=== PATIENT | female | born 1995 | race African-American/Black ===

== ENCOUNTER 2018-07-11 10:27 | Inpatient (IN) ==
[2018-07-11 10:37] VITALS: BMI 23.9
[2018-07-11] MEDS ORDERED: NS 1000 ML 1,000 ML ONE (11:51)
[2018-07-11] MEDS ORDERED: NS 1000 ML 1,000 ML IV SCH (12:00)
[2018-07-11 12:21] LABS: BASOPHILS % (AUTO) 0.5 % (0.2-1.0); EOSINOPHILS # (AUTO) 0.2 x10^3/uL (0.0-0.2); EOSINOPHILS % (AUTO) 2.9 % (0.9-2.9); HEMATOCRIT 30.3 % (36.0-47.0); HEMOGLOBIN 10.7 g/dL (12.0-16.0); LYMPHOCYTES # (AUTO) 0.5 X10^3/uL (1.3-2.9); LYMPHOCYTES % (AUTO) 10.5 % (21.0-51.0); MEAN CORPUSCULAR HEMOGLOBIN 29.7 pg (27.0-34.0); MEAN CORPUSCULAR HGB CONC 35.2 g/dL (33.0-35.0); MEAN CORPUSCULAR VOLUME 84.2 fL (80.0-100.0); MEAN PLATELET VOLUME 12.4 fL (7.4-11.0); MONOCYTES # (AUTO) 0.8 x10^3/uL (0.3-0.8); MONOCYTES % (AUTO) 14.9 % (0.0-13.0); NEUTROPHILS # (AUTO) 3.7 x10^3/uL (2.2-4.8); NEUTROPHILS % (AUTO) 71.2 % (42.0-75.0); PLATELET COUNT 41 X10^3/uL (150.0-450.0); RED CELL DISTRIBUTION WIDTH 17.5 % (11.6-16.5); WHITE BLOOD COUNT 5.2 X10^3/uL (3.6-10.0)
[2018-07-11 12:29] LABS: ALANINE AMINOTRANSFERASE 31 Units/L (12-78); ALBUMIN 2.2 g/dL (3.4-5.0); ALKALINE PHOSPHATASE 253 Units/L (46-116); ASPARTATE AMINO TRANSFERASE 40 Units/L (15-37); BLOOD UREA NITROGEN 3 mg/dL (7-18); CALCIUM 8.1 mg/dL (8.5-10.1); CARBON DIOXIDE 28.7 mmol/L (21-32); CHLORIDE 103 mmol/L (98-107); COR CA(FOR HYPOALB) 9.5 mg/dL (8.5-10.1); CREATININE 0.77 mg/dL (0.55-1.02); SODIUM 139 mmol/L (136-145); TOTAL PROTEIN 5.4 g/dL (6.4-8.2); eGFR NON BLACK RACES > 60 (>60)
[2018-07-11 12:32] LABS: PLATELET MORPHOLOGY COMMENT NORMAL (NORMAL)
[2018-07-11 12:39] LABS: BILIRUBIN,URINE 3+ (NEGATIVE); BLOOD/HEMOGLOBIN,URINE NEGATIVE (NEGATIVE); GLUCOSE, URINE NEGATIVE (NEGATIVE); KETONES,URINE NEGATIVE (NEGATIVE); LEUKOCYTE ESTERASE ,URINE 1+ (NEGATIVE); NITRITES,URINE POSITIVE (NEGATIVE); PROTEIN,URINE 2+ (NEGATIVE); UROBILINOGEN,URINE 4+ (NORMAL)
--- NOTE | 2018-07-11 12:42 | RAD ---
Chest x-ray, two views Clinical indication: Fever, chest pain Findings: The heart size and mediastinal contours are normal. There are no consolidating infiltrates. The pleural spaces are clear. There is radiopaque material outlining paraesophageal and gastric vari destin within the epigastric region near the GE junction, probably due to prior embolization. Tips shunt is identified within the liver. Gallbladder is surgically absent. There is no evidence of free air o r pneumothorax. Impression: No acute pulmonary infiltrates identified. Evidence of prior TIPS procedure and embolization of para esophageal/gastric varices. Reported By:
[2018-07-11 12:47] LABS: AMORPHOUS SEDIMENT,UR 4+ /HPF (NEGATIVE); APPEARANCE,URINE HAZY (CLEAR); BACTERIA,URINE TRACE /HPF (NEGATIVE); CALCIUM OXALATE CRYSTALS,UR RARE /HPF (NEGATIVE); COLOR,URINE AMBER (YELLOW); SQUAMOUS EPITHELIAL CELL,UR FEW /HPF (NEGATIVE)
[2018-07-11] MEDS ORDERED: K-LYTE EFFERVESCENT ONE ×2 (13:45)
[2018-07-11] MEDS ORDERED: CIPRO IV 400 MG PREMIX* 400 MG/200 ML IV.SOLN. IV ONE (14:23)
--- NOTE | 2018-07-11 14:29 | DR.GENAD ---
HPI Time Seen Time Seen by Provider: 07/11/18 11:22 PCP Primary Care Physician: dr licea Complaint/Symptoms Chief Complaint Doctors Comments: I agree with statement as written. Patient lab work revealed bacteremia on 07/07/18 Klebsiella pneumonia sensitive to few oral antibiotics. Patient has liver failure. Chief Complaint:: pt has been running a fever for 2 weeks was seen [facility]18 and was dx with pneumonia. ravin called pt and told her to come to our er to be admitted. Source History Provided: Patient Mode of Arrival Mode of Arrival: Ambulatory Timing Onset of Chief Complaint: 07/03/18 PMH PMH Past Medical History: Yes Past Medical History Comment: liver problems Past Surgical History: Yes Surgical History: Cholecystectomy Past Surgical History Comment: esopghes bands, liver shunt Family History History of Family Medical Conditions: No Social History Does patient currently use any type of tobacco product: No Have you used tobacco products in the last 12 months: No Type of Tobacco Use: None Does any household member use tobacco: No Alcohol Use: None Do you use any recreational Drugs:: No Lives With: Family Lives Where: Home infectious screening In the last 2 months have you had wt loss of >10#?: NO Have you had fever, night sweats or hemotysis?: No Have you traveled outside the country in the last 6 months?: No Isolation: Standard PE Vital Signs Vitals: Temperature 99.6 F Pulse Rate 103 Respiratory Rate 16 Blood Pressure [Left Arm] 108/58 Blood Pressure 104/58 O2 Sat by Pulse Oximetry 99 General Limitations: No Limitations and Language Barrier General Appearance: Alert and In No Apparent Distress Head Head Exam: Normal Inspection and Atraumatic Eyes Eye exam: Normal Appearance, PERRL and EOMI ENT ENT Exam: Normal Exam, Normal Oropharynx and Normal External Ear Exam External Ear Exam: Normal External Inspection and Auricular Hematoma TM/Canal Exam: Bilateral: Normal Nose Exam: Normal Nose Exam Mouth Exam: Normal Inspection Throat Exam: Normal Inspection Neck Neck Exam: Normal Inspection Chest Chest Inspection: Normal Inspection Respiratory Respiratory Exam: Normal Lung Sounds Bilat Respiratory Exam: Bilateral: Clear to Auscultation Cardiovascular Cardiovascular Exam: Regular Rate and Normal Rhythm Abdominal Exam Abdominal Exam: Normal Inspection and Normal Bowel Sounds Abdominal Tenderness: RUQ, RLQ and LUQ Back Back Exam: Normal Inspection and Full ROM Neurologic Neurological Exam: Alert, Oriented X3 and CN II-XII Intact Psychiatric Psychiatric Exam: Normal Affect and Normal Mood Skin Skin Exam: Warm, Dry and Normal Color COURSE Consultation Called: 14:10 Consultation Comments: Patient discussed with Dr. Romero who agreed to admits for further management for bacteremia. ROR Labs Reviewed Laboratory Results Reviewed?: Yes Result Diagrams: 07/11/18 11:08 07/11/18 11:08 Laboratory: WBC 5.2 X10^3/uL (3.6-10.0) 07/11/18 11:08 RBC 3.60 X10^6/uL (3.5-5.4) 07/11/18 11:08 Hgb 10.7 g/dL (12.0-16.0) L 07/11/18 11:08 Hct 30.3 % (36.0-47.0) L 07/11/18 11:08 MCV 84.2 fL (80.0-100.0) 07/11/18 11:08 MCH 29.7 pg (27.0-34.0) 07/11/18 11:08 MCHC 35.2 g/dL (33.0-35.0) H 07/11/18 11:08 RDW 17.5 % (11.6-16.5) H 07/11/18 11:08 Plt Count 41 X10^3/uL (150.0-450.0) L 07/11/18 11:08 Plt Count Comment Decreased (ADEQUATE) A 07/11/18 11:08 MPV 12.4 fL (7.4-11.0) H 07/11/18 11:08 Neut % (Auto) 71.2 % (42.0-75.0) 07/11/18 11:08 Lymph % (Auto) 10.5 % (21.0-51.0) L 07/11/18 11:08 [place] % (Auto) 14.9 % (0.0-13.0) H 07/11/18 11:08 Eos % (Auto) 2.9 % (0.9-2.9) 07/11/18 11:08 Baso % (Auto) 0.5 % (0.2-1.0) 07/11/18 11:08 Neut # (Auto) 3.7 x10^3/uL (2.2-4.8) 07/11/18 11:08 Lymph # (Auto) 0.5 X10^3/uL (1.3-2.9) L 07/11/18 11:08 [place] # (Auto) 0.8 x10^3/uL (0.3-0.8) 07/11/18 11:08 Eos # (Auto) 0.2 x10^3/uL (0.0-0.2) 07/11/18 11:08 Baso # (Auto) 0.0 X10^3/uL (0.0-0.1) 07/11/18 11:08 Absolute Nucleated RBC 0.1 /100WBC 07/11/18 11:08 Plt Morphology Comment Normal (NORMAL) 07/11/18 11:08 RBC Morphology Normal (NORMAL) 07/11/18 11:08 Sodium 139 mmol/L (136-145) 07/11/18 11:08 Corrected Sodium TNP 07/11/18 11:08 Potassium 3.3 mmol/L (3.5-5.1) L 07/11/18 11:08 Chloride 103 mmol/L (98-107) 07/11/18 11:08 Carbon Dioxide 28.7 mmol/L (21-32) 07/11/18 11:08 BUN 3 mg/dL (7-18) L 07/11/18 11:08 Creatinine 0.77 mg/dL (0.55-1.02) 07/11/18 11:08 Est GFR (MDRD) Af Amer > 60 (>60) 07/11/18 11:08 Est GFR (MDRD) Non-Af > 60 (>60) 07/11/18 11:08 Glucose 86 mg/dL (65-99) 07/11/18 11:08 Calcium 8.1 mg/dL (8.5-10.1) L 07/11/18 11:08 Corrected Calcium 9.5 mg/dL (8.5-10.1) 07/11/18 11:08 Total Bilirubin 6.30 mg/dL (0.2-1.0) H 07/11/18 11:08 AST 40 Units/L (15-37) H 07/11/18 11:08 ALT 31 Units/L (12-78) 07/11/18 11:08 Alkaline Phosphatase 253 Units/L (46-116) H 07/11/18 11:08 C-Reactive Protein 27.20 mg/L (0-3.0) H 07/11/18 11:08 Total Protein 5.4 g/dL (6.4-8.2) L 07/11/18 11:08 Albumin 2.2 g/dL (3.4-5.0) L 07/11/18 11:08 Globulin 3.2 g/dL (2.5-4.5) 07/11/18 11:08 Albumin/Globulin Ratio 0.7 Ratio (1.1-2.1) L 07/11/18 11:08 Specimen Type Clean catch urine 07/11/18 12:31 Urine Color [place] (YELLOW) 07/11/18 12: Urine Appearance Hazy (CLEAR) 07/11/18 12:31 Urine pH 6.0 (5.0 - 8.0) 07/11/18 12:31 Ur Specific [place] 1.025 (1.000-1.030) 07/11/18 12:31 Urine Protein 2+ (NEGATIVE) 07/11/18 12:31 Urine Glucose (UA) Negative (NEGATIVE) 07/11/18 12:31 Urine Ketones Negative (NEGATIVE) 07/11/18 12:31 Urine Occult Blood Negative (NEGATIVE) 07/11/18 12:31 Urine Nitrite Positive (NEGATIVE) 07/11/18 12:31 Urine Bilirubin 3+ (NEGATIVE) 07/11/18 12:31 Urine Urobilinogen 4+ (NORMAL) 07/11/18 12:31 Ur Leukocyte Esterase 1+ (NEGATIVE) 07/11/18 12:31 Urine RBC 3-5 /HPF (NONE SEEN) 07/11/18 12:31 Urine WBC 3-5 /HPF (NONE SEEN) 07/11/18 12:31 Ur Squamous Epith Cells Few /HPF (NEGATIVE) 07/11/18 12:31 Calcium Oxalate Crystal Rare /HPF (NEGATIVE) 07/11/18 12:31 Amorphous Sediment 4+ /HPF (NEGATIVE) 07/11/18 12:31 Urine Bacteria Trace /HPF (NEGATIVE) 07/11/18 12:31 Ur Culture Indicated? No/not indicated 07/11/18 12:31 XRAY XRAY Findings: Chest: No acute cardiopulmonary disease. ADDITIONAL NOTES Additional Notes Additional Notes: Patient admitted for parenteral antibiotics
[2018-07-11] MEDS ORDERED: ZOFRAN INJ 4 MG VIAL IVP PRN (14:31)
[2018-07-11] MEDS ORDERED: TYLENOL 325 MG TAB PO PRN ×2 (14:31)
[2018-07-11] MEDS ORDERED: PHENERGAN INJ 25 MG IV PRN (14:31)
[2018-07-11] MEDS ORDERED: MORPHINE SULFATE INJ 4 MG IVP PRN (14:36)
[2018-07-11] MEDS: CIPRO IV 400 MG PREMIX* 400 MG/200 ML IV.SOLN. IV SCH ×2 (15:05→20:21)
[2018-07-11] MEDS: ZOSYN VIAL 3.375 GRAMS 3.375 G in NS 100 ML IV + SPIKE MINIBAG* 100 ML IV SCH (21:41)
[2018-07-12] MEDS: ZOSYN VIAL 3.375 GRAMS 3.375 G in NS 100 ML IV + SPIKE MINIBAG* 100 ML IV SCH (05:01)
[2018-07-12 06:55] LABS: BASOPHILS % (AUTO) 0.3 % (0.2-1.0); EOSINOPHILS # (AUTO) 0.1 x10^3/uL (0.0-0.2); HEMATOCRIT 30.8 % (36.0-47.0); HEMOGLOBIN 10.7 g/dL (12.0-16.0); LYMPHOCYTES # (AUTO) 0.5 X10^3/uL (1.3-2.9); LYMPHOCYTES % (AUTO) 9.1 % (21.0-51.0); MEAN CORPUSCULAR HEMOGLOBIN 29.5 pg (27.0-34.0); MEAN CORPUSCULAR HGB CONC 34.7 g/dL (33.0-35.0); MEAN PLATELET VOLUME 11.7 fL (7.4-11.0); MONOCYTES # (AUTO) 0.6 x10^3/uL (0.3-0.8); MONOCYTES % (AUTO) 11.6 % (0.0-13.0); NEUTROPHILS # (AUTO) 4.1 x10^3/uL (2.2-4.8); PLATELET COUNT 43 X10^3/uL (150.0-450.0); RED BLOOD COUNT 3.62 X10^6/uL (3.5-5.4); RED CELL DISTRIBUTION WIDTH 17.9 % (11.6-16.5); WHITE BLOOD COUNT 5.3 X10^3/uL (3.6-10.0)
[2018-07-12 07:04] LABS: ALANINE AMINOTRANSFERASE 27 Units/L (12-78); ALBUMIN 2.1 g/dL (3.4-5.0); ALKALINE PHOSPHATASE 263 Units/L (46-116); ASPARTATE AMINO TRANSFERASE 36 Units/L (15-37); BLOOD UREA NITROGEN 2 mg/dL (7-18); CALCIUM 7.9 mg/dL (8.5-10.1); CARBON DIOXIDE 30.1 mmol/L (21-32); CHLORIDE 104 mmol/L (98-107); COR CA(FOR HYPOALB) 9.4 mg/dL (8.5-10.1); CREATININE 0.82 mg/dL (0.55-1.02); SODIUM 139 mmol/L (136-145); TOTAL PROTEIN 5.1 g/dL (6.4-8.2); eGFR NON BLACK RACES > 60 (>60)
[2018-07-12 07:27] LABS: PLATELET MORPHOLOGY COMMENT NORMAL (NORMAL)
[2018-07-12] MEDS: CIPRO IV 400 MG PREMIX* 400 MG/200 ML IV.SOLN. IV SCH (08:03)
[2018-07-12] MEDS: LEVAQUIN PREMIX IV 750 MG 750 MG/150 ML BAG IV SCH (09:43)
[2018-07-12] MEDS: FORTAZ or TAZICEF VIAL INJ IVP SCH ×3 (09:43→21:01)
[2018-07-12] MEDS ORDERED: K-LYTE EFFERVESCENT PO ONE (13:16)
[2018-07-13] MEDS: FORTAZ or TAZICEF VIAL INJ IVP SCH ×3 (05:14→20:57)
[2018-07-13 05:45] LABS: BASOPHILS % (AUTO) 0.4 % (0.2-1.0); EOSINOPHILS # (AUTO) 0.1 x10^3/uL (0.0-0.2); EOSINOPHILS % (AUTO) 1.5 % (0.9-2.9); HEMATOCRIT 29.6 % (36.0-47.0); HEMOGLOBIN 10.4 g/dL (12.0-16.0); LYMPHOCYTES # (AUTO) 0.5 X10^3/uL (1.3-2.9); MEAN CORPUSCULAR HEMOGLOBIN 29.4 pg (27.0-34.0); MEAN CORPUSCULAR HGB CONC 35.1 g/dL (33.0-35.0); MEAN CORPUSCULAR VOLUME 83.8 fL (80.0-100.0); MEAN PLATELET VOLUME 12.1 fL (7.4-11.0); MONOCYTES # (AUTO) 0.6 x10^3/uL (0.3-0.8); MONOCYTES % (AUTO) 9.9 % (0.0-13.0); NEUTROPHILS # (AUTO) 4.8 x10^3/uL (2.2-4.8); NEUTROPHILS % (AUTO) 79.2 % (42.0-75.0); PLATELET COUNT 46 X10^3/uL (150.0-450.0); RED BLOOD COUNT 3.53 X10^6/uL (3.5-5.4); RED CELL DISTRIBUTION WIDTH 17.9 % (11.6-16.5); WHITE BLOOD COUNT 6.1 X10^3/uL (3.6-10.0)
[2018-07-13 06:07] LABS: ALANINE AMINOTRANSFERASE 25 Units/L (12-78); ALKALINE PHOSPHATASE 286 Units/L (46-116); ASPARTATE AMINO TRANSFERASE 41 Units/L (15-37); BLOOD UREA NITROGEN 3 mg/dL (7-18); CARBON DIOXIDE 24.6 mmol/L (21-32); CHLORIDE 104 mmol/L (98-107); COR CA(FOR HYPOALB) 9.6 mg/dL (8.5-10.1); CREATININE 0.73 mg/dL (0.55-1.02); SODIUM 137 mmol/L (136-145); TOTAL PROTEIN 5.2 g/dL (6.4-8.2); eGFR NON BLACK RACES > 60 (>60)
[2018-07-13 06:50] LABS: PLATELET MORPHOLOGY COMMENT NORMAL (NORMAL)
--- NOTE | 2018-07-13 08:12 | DR.H&P ---
H&P - History & Physical for Day of: H&P Date: 07/11/18 - Chief Complaint Chief Complaint: FEVER, SOB, COUGH - History of Present Illness History of Present Illness: IS A 23 YEAR OLD PATIENT OF OURS WHO PRESENTED TO THE ER WITH COMPLAINTS OF FEVER X 2 WEEKS. SHE REPORTS THAT SHE WAS SEEN IN THE [place], [place] ER ON 07-07-2018 AND DIAGNOSED WITH PNEUMONIA. SHE WAS DISCHARGED HOME ON ORAL ANTIBIOTICS. PATIENT REPORTED THAT SYMPTOMS HAVE NOT IMPROVED. ASSOCIATED SYMPTOMS INCLUDE SHORTNESS OF BREATH AND A NON-PRODUCTIVE COUGH. UPON OBTAINING RECORDS, BLOOD CULTURES WERE FOUND TO BE POSITIVE FOR KLEBSIELLA PNEUMONIA, WHICH WAS ONLY SENSITIVE TO A FEW ORAL ANTIBIOTICS. PATIENT HAS A MEDICAL HISTORY OF LIVER FAILURE, CHOLECYSTECTOMY, ESOPHAGEAL BANDS, AND A LIVER SHUNT. ON ARRIVAL, VITALS WERE 99.6-103-16-99%-104/58. LABS WERE OBTAINED. ABNORMAL LAB VALUES INCLUDE THE FOLLOWING: HGB 10.7, HCT 30.3, PLT COUNT 41, CRP 27.20, POTASSIUM 3.3, BUN 3, CALCIUM 8.1, TOTAL BILI 6.30, AST 40, ALK PHOS 253, TOTAL PROTEIN 5.4, ALBUMIN 2.2. URINALYSIS REVEALED WBC 3-5, RBC 3-5, LEUKOCYTES 1+, BILIRUBIN 3+, BACTERIA TRACE, NITRATE POSITIVE. BLOOD CULTURES PENDING. CHEST XRAY OBTAINED AND REVEALED: The heart size and mediastinal contours are normal. There are no consolidating infiltrates. The pleural spaces are clear. There is radiopaque material outlining paraesophageal and gastric varices within the epigastric region near the GE junction, probably due to prior embolization. Tips shunt is identified within the liver. Gallbladder is surgically absent. There is no evidence of free air or pneumothorax. SHE WAS ADMITTED TO THE HOSPITAL FOR FURTHER EVALUATION AND TREATMENT OF BACTEREMIA, FAILED OUTPATIENT TREATMENT. SHE WAS STARTED ON CIPRO AND ZOSYN IV. OTHERWISE, WE PLAN TO FOLLOW UP WITH AM LABS AND CONTINUE TO MONITOR PATIENT. - Past Medical History Additional Medical History: LIVER FAILURE - Past Surgical History Surgical History: Cholecystectomy Additional Surgical History: LIVER SHUNT, ESOPHAGEAL BANDS - Family History Family Medical History: Diabetes Mellitus - Social History Does patient currently use any type of tobacco product: No Have you used tobacco products in the last 12 months: No Type of Tobacco Use: None Does any household member use tobacco: No Alcohol Use: None Drug Use: None - Medications Home Medications: iodine Allergy (Verified 07/11/18 10:31) - Review of Systems Constitutional: Fever, Chills Eyes: No Symptoms Reported ENT: No Symptoms Reported Respiratory: Cough, Shortness of Breath Cardiovascular: No Symptoms Reported Gastrointestinal: No Symptoms Reported Genitourinary: No Symptoms Reported Musculoskeletal: No Symptoms Reported Skin: No Symptoms Reported Neurological: No Symptoms Reported - Physical Exam Vital Signs: Temperature 99.0 F Pulse Rate [Right Brachial] 95 Pulse Rate 103 Respiratory Rate 18 Blood Pressure [Left Arm] 98/56 Blood Pressure 104/58 O2 Sat by Pulse Oximetry 98 Oriented: Normal Eyes: Normal Ear: Normal Nose: Normal Throat: Normal Respiratory: Diminished Throughout Cardiovascular: Tachycardia. negative: S3, S4, Murmur : Normal Auscultation: Bowel Sounds: Normal Palpation: Normal Tenderness: Normal Skin: Normal Musculoskeletal: Normal Psychiatric: Normal Mood Description: Calm Affect: Normal Speech Pattern: Clear - Assessment/Plan (1) Bandemia Status: Acute Plan: ADMIT, CIPRO IV, ZOSYN IV, CONTINUE TO MONITOR (2) Fever Qualifiers: Fever type: due to other condition Qualified Code(s): R50.81 - Fever presenting with conditions classified elsewhere Status: Acute Plan: TYLENOL PRN, CONTINUE TO MONITOR - Allergies Allergies/Adverse Reactions: Allergies Allergy/AdvReac Type Severity Reaction Status Date / Time iodine Allergy Verified 07/11/18 10:31
[2018-07-13] MEDS: LEVAQUIN PREMIX IV 750 MG 750 MG/150 ML BAG IV SCH (08:41)
[2018-07-14] MEDS: FORTAZ or TAZICEF VIAL INJ IVP SCH ×4 (01:38→21:49)
[2018-07-14 06:05] LABS: BASOPHILS % (AUTO) 0.5 % (0.2-1.0); EOSINOPHILS # (AUTO) 0.1 x10^3/uL (0.0-0.2); EOSINOPHILS % (AUTO) 1.7 % (0.9-2.9); HEMATOCRIT 29.2 % (36.0-47.0); HEMOGLOBIN 10.4 g/dL (12.0-16.0); LYMPHOCYTES # (AUTO) 0.5 X10^3/uL (1.3-2.9); LYMPHOCYTES % (AUTO) 10.7 % (21.0-51.0); MEAN CORPUSCULAR HGB CONC 35.7 g/dL (33.0-35.0); MEAN PLATELET VOLUME 12.1 fL (7.4-11.0); MONOCYTES # (AUTO) 0.6 x10^3/uL (0.3-0.8); MONOCYTES % (AUTO) 11.2 % (0.0-13.0); NEUTROPHILS # (AUTO) 3.8 x10^3/uL (2.2-4.8); NEUTROPHILS % (AUTO) 75.9 % (42.0-75.0); PLATELET COUNT 51 X10^3/uL (150.0-450.0); RED BLOOD COUNT 3.48 X10^6/uL (3.5-5.4); RED CELL DISTRIBUTION WIDTH 17.4 % (11.6-16.5); WHITE BLOOD COUNT 5.1 X10^3/uL (3.6-10.0)
[2018-07-14 06:14] LABS: ALANINE AMINOTRANSFERASE 26 Units/L (12-78); ALBUMIN 1.9 g/dL (3.4-5.0); ALKALINE PHOSPHATASE 299 Units/L (46-116); ASPARTATE AMINO TRANSFERASE 49 Units/L (15-37); BLOOD UREA NITROGEN 3 mg/dL (7-18); CALCIUM 7.7 mg/dL (8.5-10.1); CARBON DIOXIDE 26.7 mmol/L (21-32); CHLORIDE 105 mmol/L (98-107); COR CA(FOR HYPOALB) 9.4 mg/dL (8.5-10.1); CREATININE 0.75 mg/dL (0.55-1.02); SODIUM 139 mmol/L (136-145); eGFR NON BLACK RACES > 60 (>60)
[2018-07-14 06:26] LABS: ANISOCYTOSIS SLIGHT; PLATELET MORPHOLOGY COMMENT NORMAL (NORMAL)
[2018-07-14] MEDS: LEVAQUIN PREMIX IV 750 MG 750 MG/150 ML BAG IV SCH (08:42)
--- NOTE | 2018-07-14 12:12 | PCM.PROG ---
Progress Note - Progress Note for Day of Date of Exam: 07/14/18 - Subjective Subjective: 23 BF ADMITTED ON 07/11 WITH BACTEREMIA. PT WAS INSTRUCTED BY HER PCP, DR SWEET TO GO TO HOSPITAL FOR TREATMENT OF POSITIVE BLOOD CULTURES, PT STATES COLLECTED IN [place] LAST WEEK. PT HAS PMH OF AUTO IMMUNE LIVER DISEASE, PT CURRENTLY UNDER THE CARE OF DR NEVES IN [place]. PT HAS THROMBOCYTOPENIA AND HX OF ESOPHAGEAL VARICES BANDED LAST IN JUN 2018. PT CO FEVER FOR SEVERAL DAYS PRIOR TO ADMISSION. PT DENIES ANY PAIN OR SOB THIS AM. CURRENTLY ON IV LEVAQUIN, BC COLLECTED ON ADMISSION PENDING. WBC 5.1 PLATELET 51, BILI 5.6 ALK PHOS 299 - Past Medical Family Social History Past Med/Fam/Surg Hx: No changes since H&P Allergies: Allergies iodine Allergy (Verified 07/11/18 10:31) - Review of Systems ROS: No change since H&P - Vital Signs and I&O's Vital Signs: Temperature 98.4 F Pulse Rate [Left Brachial] 89 Pulse Rate [Right Brachial] 97 Pulse Rate 103 Respiratory Rate 18 Blood Pressure [Left Arm] 95/45 Blood Pressure 104/58 O2 Sat by Pulse Oximetry 98 Intake and Output: Intake & Output 07/12/18 07/13/18 07/14/18 07/15/18 11:59 11:59 11:59 11:59 Intake Total 790 / 790 2120 / 2120 1256 / 1256 Balance 790 / 790 0 / 2120 1256 / 1256 - Physical Exam Oriented: Normal Eyes: Normal Ear: Normal Nose: Normal Throat: Normal Respiratory: Diminished (MILD TO BILATERAL LUNG BASES) Cardiovascular: Tachycardia. negative: S3, S4, Murmur : Normal Auscultation: Bowel Sounds: Normal Tenderness: Normal Skin: Normal Musculoskeletal: Normal Psychiatric: Normal Mood Description: Calm Affect: Normal Speech Pattern: Clear, Appropriate - Laboratory and Diagnostics Result Diagrams: 07/14/18 05:15 07/14/18 05:15 Labs: 07/11/18 11:08 Blood Blood Culture - Preliminary 07/11/18 11:13 Blood Blood Culture - Preliminary Laboratory WBC 5.1 X10^3/uL (3.6-10.0) 07/14/18 05:15 RBC 3.48 X10^6/uL (3.5-5.4) L 07/14/18 05:15 Hgb 10.4 g/dL (12.0-16.0) L 07/14/18 05:15 Hct 29.2 % (36.0-47.0) L 07/14/18 05:15 MCV 84.0 fL (80.0-100.0) 07/14/18 05:15 MCH 30.0 pg (27.0-34.0) 07/14/18 05:15 MCHC 35.7 g/dL (33.0-35.0) H 07/14/18 05:15 RDW 17.4 % (11.6-16.5) H 07/14/18 05:15 Plt Count 51 X10^3/uL (150.0-450.0) L 07/14/18 05:15 Plt Count Comment Decreased (ADEQUATE) A 07/14/18 05:15 MPV 12.1 fL (7.4-11.0) H 07/14/18 05:15 Neut % (Auto) 75.9 % (42.0-75.0) H 07/14/18 05:15 Lymph % (Auto) 10.7 % (21.0-51.0) L 07/14/18 05:15 [place] % (Auto) 11.2 % (0.0-13.0) 07/14/18 05:15 Eos % (Auto) 1.7 % (0.9-2.9) 07/14/18 05:15 Baso % (Auto) 0.5 % (0.2-1.0) 07/14/18 05:15 Neut # (Auto) 3.8 x10^3/uL (2.2-4.8) 07/14/18 05:15 Lymph # (Auto) 0.5 X10^3/uL (1.3-2.9) L 07/14/18 05:15 [place] # (Auto) 0.6 x10^3/uL (0.3-0.8) 07/14/18 05:15 Eos # (Auto) 0.1 x10^3/uL (0.0-0.2) 07/14/18 05:15 Baso # (Auto) 0.0 X10^3/uL (0.0-0.1) 07/14/18 05:15 Absolute Nucleated RBC 0.1 /100WBC 07/14/18 05:15 Plt Morphology Comment Normal (NORMAL) 07/14/18 05:15 RBC Morphology Abnormal (NORMAL) A 07/14/18 05:15 Anisocytosis Slight A 07/14/18 05:15 Sodium 139 mmol/L (136-145) 07/14/18 05:15 Corrected Sodium TNP 07/14/18 05:15 Potassium 3.9 mmol/L (3.5-5.1) 07/14/18 05:15 Chloride 105 mmol/L (98-107) 07/14/18 05:15 Carbon Dioxide 26.7 mmol/L (21-32) 07/14/18 05:15 BUN 3 mg/dL (7-18) L 07/14/18 05:15 Creatinine 0.75 mg/dL (0.55-1.02) 07/14/18 05:15 Est GFR (MDRD) Af Amer > 60 (>60) 07/14/18 05:15 Est GFR (MDRD) Non-Af > 60 (>60) 07/14/18 05:15 Glucose 83 mg/dL (65-99) 07/14/18 05:15 Calcium 7.7 mg/dL (8.5-10.1) L 07/14/18 05:15 Corrected Calcium 9.4 mg/dL (8.5-10.1) 07/14/18 05:15 Total Bilirubin 5.60 mg/dL (0.2-1.0) H 07/14/18 05:15 AST 49 Units/L (15-37) H 07/14/18 05:15 ALT 26 Units/L (12-78) 07/14/18 05:15 Alkaline Phosphatase 299 Units/L (46-116) H 07/14/18 05:15 C-Reactive Protein 27.20 mg/L (0-3.0) H 07/11/18 11:08 Total Protein 5.0 g/dL (6.4-8.2) L 07/14/18 05:15 Albumin 1.9 g/dL (3.4-5.0) L 07/14/18 05:15 Globulin 3.1 g/dL (2.5-4.5) 07/14/18 05:15 Albumin/Globulin Ratio 0.6 Ratio (1.1-2.1) L 07/14/18 05:15 Specimen Type Clean catch urine 07/11/18 12:31 Urine Color [place] (YELLOW) 07/11/18 12:31 Urine Appearance Hazy (CLEAR) 07/11/18 12:31 Urine pH 6.0 (5.0 - 8.0) 07/11/18 12:31 Ur Specific [place] 1.025 (1.000-1.030) 07/11/18 12:31 Urine Protein 2+ (NEGATIVE) 07/11/18 12:31 Urine Glucose (UA) Negative (NEGATIVE) 07/11/18 12:31 Urine Ketones Negative (NEGATIVE) 07/11/18 12: Urine Occult Blood Negative (NEGATIVE) 07/11/18 12: Urine Nitrite Positive (NEGATIVE) 07/11/18 12:31 Urine Bilirubin 3+ (NEGATIVE) 07/11/18 12:31 Urine Urobilinogen 4+ (NORMAL) 07/11/18 12:31 Ur Leukocyte Esterase 1+ (NEGATIVE) 07/11/18 12:31 Urine RBC 3-5 /HPF (NONE SEEN) 07/11/18 12:31 Urine WBC 3-5 /HPF (NONE SEEN) 07/11/18 12:31 Ur Squamous Epith Cells Few /HPF (NEGATIVE) 07/11/18 12:31 Calcium Oxalate Crystal Rare /HPF (NEGATIVE) 07/11/18 12:31 Amorphous Sediment 4+ /HPF (NEGATIVE) 07/11/18 12:31 Urine Bacteria Trace /HPF (NEGATIVE) 07/11/18 12:31 Ur Culture Indicated? No/not indicated 07/11/18 12:31 - Plan (1) Bacteremia Status: Acute Plan: DAILY LABS, FEVER CONTROL, MONITORING. GENTLE IV HYDRATION, BP CONTROL. IV ATBX THERAPY, BLOOD CULTURES PENDING. BLEEDING PRECAUTIONS, AM CBC CMP. I & OS (2) Autoimmune liver disease Status: Acute (3) Thrombocythemia Status: Acute (4) Esophageal varices without mention of bleeding Status: Acute
[2018-07-14] MEDS: ALDACTONE TAB 25 MG PO SCH ×2 (13:41→21:48)
[2018-07-14] MEDS ORDERED: ACTIGALL PO SCH (14:00)
[2018-07-14] MEDS: ACTIGALL PO SCH (17:31)
[2018-07-14] MEDS: PROTONIX TAB 40 MG PO SCH (21:48)
[2018-07-15 05:55] LABS: BASOPHILS % (AUTO) 0.4 % (0.2-1.0); EOSINOPHILS # (AUTO) 0.1 x10^3/uL (0.0-0.2); EOSINOPHILS % (AUTO) 1.3 % (0.9-2.9); HEMATOCRIT 30.8 % (36.0-47.0); HEMOGLOBIN 10.7 g/dL (12.0-16.0); LYMPHOCYTES # (AUTO) 0.5 X10^3/uL (1.3-2.9); LYMPHOCYTES % (AUTO) 10.1 % (21.0-51.0); MEAN CORPUSCULAR HEMOGLOBIN 29.3 pg (27.0-34.0); MEAN CORPUSCULAR HGB CONC 34.7 g/dL (33.0-35.0); MEAN CORPUSCULAR VOLUME 84.4 fL (80.0-100.0); MEAN PLATELET VOLUME 12.4 fL (7.4-11.0); MONOCYTES # (AUTO) 0.4 x10^3/uL (0.3-0.8); MONOCYTES % (AUTO) 8.5 % (0.0-13.0); NEUTROPHILS # (AUTO) 3.8 x10^3/uL (2.2-4.8); NEUTROPHILS % (AUTO) 79.7 % (42.0-75.0); PLATELET COUNT 53 X10^3/uL (150.0-450.0); RED BLOOD COUNT 3.65 X10^6/uL (3.5-5.4); RED CELL DISTRIBUTION WIDTH 17.8 % (11.6-16.5); WHITE BLOOD COUNT 4.8 X10^3/uL (3.6-10.0)
[2018-07-15] MEDS: FORTAZ or TAZICEF VIAL INJ IVP SCH ×3 (06:10→21:05)
[2018-07-15] MEDS: ACTIGALL PO SCH (06:11)
[2018-07-15 06:14] LABS: ALANINE AMINOTRANSFERASE 42 Units/L (12-78); ALKALINE PHOSPHATASE 354 Units/L (46-116); ASPARTATE AMINO TRANSFERASE 75 Units/L (15-37); BLOOD UREA NITROGEN 3 mg/dL (7-18); CALCIUM 8.1 mg/dL (8.5-10.1); CARBON DIOXIDE 29.3 mmol/L (21-32); CHLORIDE 105 mmol/L (98-107); COR CA(FOR HYPOALB) 9.7 mg/dL (8.5-10.1); CREATININE 0.79 mg/dL (0.55-1.02); SODIUM 139 mmol/L (136-145); TOTAL PROTEIN 5.3 g/dL (6.4-8.2); eGFR NON BLACK RACES > 60 (>60)
[2018-07-15] MEDS: LEVAQUIN PREMIX IV 750 MG 750 MG/150 ML BAG IV SCH (07:59)
[2018-07-15] MEDS: ALDACTONE TAB 25 MG PO SCH ×2 (07:59→20:51)
[2018-07-15] MEDS: PROTONIX TAB 40 MG PO SCH ×2 (07:59→20:51)
[2018-07-15] MEDS: PATIENT'S HOME MEDICATION PO SCH ×2 (13:52→21:05)
[2018-07-15] MEDS ORDERED: NS 100 ML IV 100 ML IV ONE (20:57)
[2018-07-15] MEDS ORDERED: NS 500 ML IV 500 ML IV ONE ×2 (23:02→23:03)
[2018-07-16] MEDS ORDERED: NS 1000 ML 1,000 ML IV SCH (03:00)
[2018-07-16 05:26] LABS: BASOPHILS % (AUTO) 0.4 % (0.2-1.0); EOSINOPHILS # (AUTO) 0.1 x10^3/uL (0.0-0.2); EOSINOPHILS % (AUTO) 1.5 % (0.9-2.9); HEMATOCRIT 29.8 % (36.0-47.0); HEMOGLOBIN 10.6 g/dL (12.0-16.0); LYMPHOCYTES # (AUTO) 0.5 X10^3/uL (1.3-2.9); LYMPHOCYTES % (AUTO) 11.6 % (21.0-51.0); MEAN CORPUSCULAR HEMOGLOBIN 29.7 pg (27.0-34.0); MEAN CORPUSCULAR HGB CONC 35.5 g/dL (33.0-35.0); MEAN CORPUSCULAR VOLUME 83.9 fL (80.0-100.0); MEAN PLATELET VOLUME 11.2 fL (7.4-11.0); MONOCYTES # (AUTO) 0.3 x10^3/uL (0.3-0.8); MONOCYTES % (AUTO) 7.7 % (0.0-13.0); NEUTROPHILS # (AUTO) 3.5 x10^3/uL (2.2-4.8); NEUTROPHILS % (AUTO) 78.8 % (42.0-75.0); PLATELET COUNT 52 X10^3/uL (150.0-450.0); RED BLOOD COUNT 3.55 X10^6/uL (3.5-5.4); RED CELL DISTRIBUTION WIDTH 17.4 % (11.6-16.5)
[2018-07-16 05:38] LABS: ALANINE AMINOTRANSFERASE 37 Units/L (12-78); ALBUMIN 1.9 g/dL (3.4-5.0); ALKALINE PHOSPHATASE 341 Units/L (46-116); ASPARTATE AMINO TRANSFERASE 61 Units/L (15-37); BLOOD UREA NITROGEN 3 mg/dL (7-18); CALCIUM 7.9 mg/dL (8.5-10.1); CARBON DIOXIDE 27.2 mmol/L (21-32); CHLORIDE 107 mmol/L (98-107); COR CA(FOR HYPOALB) 9.6 mg/dL (8.5-10.1); CREATININE 0.72 mg/dL (0.55-1.02); SODIUM 141 mmol/L (136-145); TOTAL PROTEIN 4.9 g/dL (6.4-8.2); eGFR NON BLACK RACES > 60 (>60)
[2018-07-16] MEDS: FORTAZ or TAZICEF VIAL INJ IVP SCH (05:52)
[2018-07-16] MEDS: PATIENT'S HOME MEDICATION PO SCH (05:52)
[2018-07-16 06:07] LABS: WHITE BLOOD COUNT 4.9 X10^3/uL (3.6-10.0)
[2018-07-16 06:08] LABS: ANISOCYTOSIS SLIGHT; HYPOCHROMASIA SLIGHT; PLATELET MORPHOLOGY COMMENT NORMAL (NORMAL)
[2018-07-16 07:38] VITALS: BP 105/57
[2018-07-16] MEDS: LEVAQUIN PREMIX IV 750 MG 750 MG/150 ML BAG IV SCH (09:36)
[2018-07-16] MEDS: ALDACTONE TAB 25 MG PO SCH (09:36)
[2018-07-16] MEDS: PROTONIX TAB 40 MG PO SCH (09:36)
--- NOTE | 2018-07-16 12:15 | PCM.PROG ---
Progress Note - Progress Note for Day of Date of Exam: 07/15/18 - Subjective Subjective: 23 BF ADMITTED ON 07/11 WITH BACTEREMIA. PT WAS INSTRUCTED BY HER PCP, DR SWEET TO GO TO HOSPITAL FOR TREATMENT OF POSITIVE BLOOD CULTURES, PT STATES COLLECTED IN [place] LAST WEEK. BLOOD CULTURES WERE FOUND TO BE POSITIVE FOR KLEBSIELLA PNEUMONIA. PT HAS PMH OF AUTO IMMUNE LIVER DISEASE, PT CURRENTLY UNDER THE CARE OF DR NEVES IN [place]. PT HAS THROMBOCYTOPENIA AND HX OF ESOPHAGEAL VARICES BANDED LAST IN JUN 2018. PT CO FEVER FOR SEVERAL DAYS PRIOR TO ADMISSION. PT DENIES ANY PAIN OR SOB THIS AM. CURRENTLY ON IV LEVAQUIN AND FORTAZ. BC COLLECTED ON ADMISSION NO GROWTH AT THIS TIME. WBC 4.8 PLATELET 53, BILI 5.7 ALK PHOS 354 - Past Medical Family Social History Past Med/Fam/Surg Hx: No changes since H&P Allergies: Allergies iodine Allergy (Verified 07/11/18 10:31) - Review of Systems ROS: No change since H&P - Vital Signs and I&O's Vital Signs: Temperature 98.6 F Pulse Rate [Left Brachial] 86 Pulse Rate [Right Brachial] 97 Pulse Rate 103 Respiratory Rate 18 Blood Pressure [Left Arm] 105/57 Blood Pressure 104/58 O2 Sat by Pulse Oximetry 98 Intake and Output: Intake & Output 07/14/18 07/15/18 07/16/18 07/17/18 11:59 11:59 11:59 11:59 Intake Total 1256 / 1256 1142 / 1142 1941 Balance 1256 / 1256 1142 / 1142 1941 - Physical Exam Oriented: Normal Eyes: Normal Ear: Normal Nose: Normal Throat: Normal Respiratory: Diminished (MILD TO BILATERAL LUNG BASES) Cardiovascular: Tachycardia. negative: S3, S4, Murmur : Normal Auscultation: Bowel Sounds: Normal Tenderness: Normal Skin: Normal Musculoskeletal: Normal Psychiatric: Normal Mood Description: Calm Affect: Normal Speech Pattern: Clear, Appropriate - Laboratory and Diagnostics Result Diagrams: 07/16/18 04:24 07/16/18 04:24 Labs: 07/11/18 11:08 Blood Blood Culture - Preliminary 07/11/18 11:13 Blood Blood Culture - Preliminary Laboratory WBC 4.9 X10^3/uL (3.6-10.0) 07/16/18 04:24 RBC 3.55 X10^6/uL (3.5-5.4) 07/16/18 04:24 Hgb 10.6 g/dL (12.0-16.0) L 07/16/18 04:24 Hct 29.8 % (36.0-47.0) L 07/16/18 04:24 MCV 83.9 fL (80.0-100.0) 07/16/18 04:24 MCH 29.7 pg (27.0-34.0) 07/16/18 04:24 MCHC 35.5 g/dL (33.0-35.0) H 07/16/18 04:24 RDW 17.4 % (11.6-16.5) H 07/16/18 04:24 Plt Count 52 X10^3/uL (150.0-450.0) L 07/16/18 04:24 Plt Count Comment Decreased (ADEQUATE) A 07/16/18 04:24 MPV 11.2 fL (7.4-11.0) H 07/16/18 04:24 Neut % (Auto) 78.8 % (42.0-75.0) H 07/16/18 04:24 Lymph % (Auto) 11.6 % (21.0-51.0) L 07/16/18 04:24 [place] % (Auto) 7.7 % (0.0-13.0) 07/16/18 04:24 Eos % (Auto) 1.5 % (0.9-2.9) 07/16/18 04:24 Baso % (Auto) 0.4 % (0.2-1.0) 07/16/18 04:24 Neut # (Auto) 3.5 x10^3/uL (2.2-4.8) 07/16/18 04:24 Lymph # (Auto) 0.5 X10^3/uL (1.3-2.9) L 07/16/18 04:24 [place] # (Auto) 0.3 x10^3/uL (0.3-0.8) 07/16/18 04:24 Eos # (Auto) 0.1 x10^3/uL (0.0-0.2) 07/16/18 04:24 Baso # (Auto) 0.0 X10^3/uL (0.0-0.1) 07/16/18 04:24 Absolute Nucleated RBC 0.0 /100WBC 07/16/18 04:24 Plt Morphology Comment Normal (NORMAL) 07/16/18 04:24 RBC Morphology Abnormal (NORMAL) A 07/16/18 04:24 Hypochromasia Slight A 07/16/18 04:24 Anisocytosis Slight A 07/16/18 04:24 Sodium 141 mmol/L (136-145) 07/16/18 04:24 Corrected Sodium TNP 07/16/18 04:24 Potassium 3.9 mmol/L (3.5-5.1) 07/16/18 04:24 Chloride 107 mmol/L (98-107) 07/16/18 04:24 Carbon Dioxide 27.2 mmol/L (21-32) 07/16/18 04:24 BUN 3 mg/dL (7-18) L 07/16/18 04:24 Creatinine 0.72 mg/dL (0.55-1.02) 07/16/18 04:24 Est GFR (MDRD) Af Amer > 60 (>60) 07/16/18 04:24 Est GFR (MDRD) Non-Af > 60 (>60) 07/16/18 04:24 Glucose 78 mg/dL (65-99) 07/16/18 04:24 Calcium 7.9 mg/dL (8.5-10.1) L 07/16/18 04:24 Corrected Calcium 9.6 mg/dL (8.5-10.1) 07/16/18 04:24 Total Bilirubin 5.40 mg/dL (0.2-1.0) H 07/16/18 04:24 AST 61 Units/L (15-37) H 07/16/18 04:24 ALT 37 Units/L (12-78) 07/16/18 04:24 Alkaline Phosphatase 341 Units/L (46-116) H 07/16/18 04:24 C-Reactive Protein 27.20 mg/L (0-3.0) H 07/11/18 11:08 Total Protein 4.9 g/dL (6.4-8.2) L 07/16/18 04:24 Albumin 1.9 g/dL (3.4-5.0) L 07/16/18 04:24 Globulin 3.0 g/dL (2.5-4.5) 07/16/18 04:24 Albumin/Globulin Ratio 0.6 Ratio (1.1-2.1) L 07/16/18 04:24 Specimen Type Clean catch urine 07/11/18 12:31 Urine Color [place] (YELLOW) 07/11/18 12:31 Urine Appearance Hazy (CLEAR) 07/11/18 12:31 Urine pH 6.0 (5.0 - 8.0) 07/11/18 12:31 Ur Specific [place] 1.025 (1.000-1.030) 07/11/18 12:31 Urine Protein 2+ (NEGATIVE) 07/11/18 12:31 Urine Glucose (UA) Negative (NEGATIVE) 07/11/18 12: Urine Ketones Negative (NEGATIVE) 07/11/18 12:31 Urine Occult Blood Negative (NEGATIVE) 07/11/18 12:31 Urine Nitrite Positive (NEGATIVE) 07/11/18 12:31 Urine Bilirubin 3+ (NEGATIVE) 07/11/18 12:31 Urine Urobilinogen 4+ (NORMAL) 07/11/18 12:31 Ur Leukocyte Esterase 1+ (NEGATIVE) 07/11/18 12:31 Urine RBC 3-5 /HPF (NONE SEEN) 07/11/18 12:31 Urine WBC 3-5 /HPF (NONE SEEN) 07/11/18 12:31 Ur Squamous Epith Cells Few /HPF (NEGATIVE) 07/11/18 12:31 Calcium Oxalate Crystal Rare /HPF (NEGATIVE) 07/11/18 12:31 Amorphous Sediment 4+ /HPF (NEGATIVE) 07/11/18 12:31 Urine Bacteria Trace /HPF (NEGATIVE) 07/11/18 12:31 Ur Culture Indicated? No/not indicated 07/11/18 12:31 - Plan (1) Bacteremia Status: Acute Plan: DAILY LABS, FEVER CONTROL, MONITORING. GENTLE IV HYDRATION, BP CONTROL. IV ATBX THERAPY, BLOOD CULTURES PENDING. BLEEDING PRECAUTIONS, AM CBC CMP. I & OS (2) Autoimmune liver disease Status: Acute (3) Thrombocythemia Status: Acute (4) Esophageal varices without mention of bleeding Status: Acute
--- NOTE | 2018-09-04 00:09 | DR.CARTERD ---
- Discharge Summary for: Discharge Summary for Date of:: 07/16/18 - Admission Date Date of Admission: 07/11/18 - Admission Diagnoses Admission Diagnosis: (1) Bandemia (2) Fever - Discharge Date Discharge Date: 07/16/18 - Discharge Diagnoses Discharge Diagnosis: 1) Bacteremia (2) Autoimmune liver disease (3) Thrombocythemia (4) Esophageal varices without mention of bleeding - Hospital Course Hospital Course: DAY ONE, IS A 23 YEAR OLD PATIENT OF OURS WHO PRESENTED TO THE ER WITH COMPLAINTS OF FEVER X 2 WEEKS. SHE REPORTED THAT SHE WAS SEEN IN THE [place], [place] ER ON 07-07-2018 AND DIAGNOSED WITH PNEUMONIA. SHE WAS DISCHARGED HOME ON ORAL ANTIBIOTICS. PATIENT REPORTED THAT SYMPTOMS HAVE NOT IMPROVED. ASSOCIATED SYMPTOMS INCLUDED SHORTNESS OF BREATH AND A NON-PRODUCTIVE COUGH. UPON OBTAINING RECORDS, BLOOD CULTURES WERE FOUND TO BE POSITIVE FOR KLEBSIELLA PNEUMONIA, WHICH WAS ONLY SENSITIVE TO A FEW ORAL ANTIBIOTICS. PATIENT HAS A MEDICAL HISTORY OF LIVER FAILURE, CHOLECYSTECTOMY, ESOPHAGEAL BANDS, AND A LIVER SHUNT. ON ARRIVAL, VITALS WERE 99.6-103-16-99%-104/58. LABS WERE OBTAINED. ABNORMAL LAB VALUES INCLUDED THE FOLLOWING: HGB 10.7, HCT 30.3, PLT COUNT 41, CRP 27.20, POTASSIUM 3.3, BUN 3, CALCIUM 8.1, TOTAL BILI 6.30, AST 40, ALK PHOS 253, TOTAL PROTEIN 5.4, ALBUMIN 2.2. URINALYSIS REVEALED WBC 3-5, RBC 3-5, LEUKOCYTES 1+, BILIRUBIN 3+, BACTERIA TRACE, NITRATE POSITIVE. BLOOD CULTURES PENDING. CHEST XRAY OBTAINED AND REVEALED: The heart size and mediastinal contours are normal. There are no consolidating infiltrates. The pleural spaces are clear. There is radiopaque material outlining paraesophageal and gastric varices within the epigastric region near the GE junction, probably due to prior embolization. Tips shunt is identified within the liver. Gallbladder is surgically absent. There is no evidence of free air or pneumothorax. SHE WAS ADMITTED TO THE HOSPITAL FOR FURTHER EVALUATION AND TREATMENT OF BACTEREMIA, FAILED OUTPATIENT TREATMENT. SHE WAS STARTED ON CIPRO AND ZOSYN IV. WE PLANNED TO FOLLOW UP WITH AM LABS AND CONTINUED TO MONITOR PATIENT. DAY TWO. WE CONTINUED WITH THE CURRENT PLAN OF TREATMENT. ABNORMAL LABS INCLUDED HGB 10.7, HCT 30.8, RDW 17.9, PLT COUNT 43, MPV 11.7, BUN 2, CALCIUM 7.9, TOTAL BILIRUBIN 6.30, ALKALINE PHOSPHATSE 263, TOTAL PROTEIN 5.1, ALBUMIN 2.1, A/G RATIO 0.7. WE CONTINUED TO MONITOR AND REPEATED LABS THE NEXT AM. DAY FOUR, PT DENIES ANY PAIN OR SOB THIS AM. CURRENTLY ON IV LEVAQUIN, BC COLLECTED ON ADMISSION PENDING. WBC 5.1 PLATELET 51, BILI 5.6 ALK PHOS 299. PT HAS PMH OF AUTO IMMUNE LIVER DISEASE, PT CURRENTLY UNDER THE CARE OF DR NEVES IN [place]. PT HAS THROMBOCYTOPENIA AND HX OF ESOPHAGEAL VARICES BANDED LAST IN JUN 2018. PT CO FEVER FOR SEVERAL DAYS. WE CONTINUED CURRENT PLAN OF TREATMENT AND CONRINUED TO MONITOR PATIENT. DAY SIX, PATIENT'S SYMPTOMS HAVE IMPROVED. ZERO COMPLAINTS WERE VOICED THIS AM. ZERO SIGNS AND SYMPTOMS OF ACUTE DISTRESS WERE NOTED. NO FEVER NOTED. LUNGS WERE NOTED TO BE CLEAR BILATERALLY ON AUSCULTATION. WE PLANNED FOR DISCHARGE. INSTRUCTIONS FOR MEDICATIONS AND FOLLOW UP WERE DISCUSSED WITH PATIENT AND FAMILY, BOTH VOICED UNDERSTANDING. PATIENT WAS DISCHARGED HOME IN STABLE CONDITION. - Discharge Medications Discharge Medications: Home Medication List furosemide 1 tab PO DAILY 07/13/18 [History] hydrochlorothiazide 1 tab PO DAILY 07/13/18 [History] pantoprazole 1 tab PO BID 07/13/18 [History] spironolactone 1 tab PO BID 07/13/18 [History] ursodiol 1 cap PO TID 07/13/18 [History] lactulose 15 ml PO TID 07/14/18 [History] levofloxacin [Levaquin] 750 mg PO QDAY #14 tab 07/16/18 [Rx] Prescriptions: levofloxacin [Levaquin] Jeremy Romero - Discharge Disposition Discharge Disposition: PATIENT TO FOLLOW UP IN OUR OFFICE IN ONE WEEK.
--- NOTE | 2018-10-05 20:36 | PCM.PROG ---
Progress Note - Progress Note for Day of Date of Exam: 07/12/18 - Subjective Subjective: WAS ADMITTED FOR PNEUMONIA, FAILED OUTPATIENT TREATMENT. TODAY, SHE IS ALERT AND ORIENTED, LYING IN BED ON MORNING ROUNDS. SHE CONTINUES WITH COMPLAINTS OF SHORTNESS OF BREATH AND A NON-PRODUCTIVE COUGH. ON EXAMINATION, HEART IS REGULAR IN RATE AND RHYTHM. BILATERAL LUNGS ARE NOTED WITH SCATTERED WHEEZING. ABDOMEN IS FLAT, SOFT, AND NON-TENDER WITH NORMAL BOWEL SOUNDS NOTED IN ALL QUADRANTS. HER VITALS THIS MORNING ARE 98.8-98-18-96%-94/55. LABS WERE OBTAINED. ABNORMAL LAB VALUES INCLUDE THE FOLLOWING: HGB 10.7, HCT 30.8, BUN 2, CALCIUM 7.9, TOTAL BILI 6.30, ALK PHOS 263, TOTAL PROTEIN 5.1, ALBUMIN 2.1. BLOOD CULTURES ARE PENDING. TODAY, WE WILL DISCONTINUE THE CIPRO AND ZOSYN THAT SHE IS CURRENTLY RECEIVING AND START FORTAZ AND LEVAQUIN. OTHERWISE, WE WILL CONTINUE WITH CURRENT PLAN OF CARE. WE WILL FOLLOW UP WITH AM LABS AND CONTINUE TO MONITOR. - Past Medical Family Social History Past Med/Fam/Surg Hx: No changes since H&P Allergies: Allergies iodine Allergy (Verified 07/11/18 10:31) - Review of Systems ROS: No change since H&P - Vital Signs and I&O's Vital Signs: Temperature 98.6 F Pulse Rate [Left Brachial] 86 Pulse Rate [Right Brachial] 97 Pulse Rate 103 Respiratory Rate 18 Blood Pressure [Left Arm] 105/57 Blood Pressure 104/58 O2 Sat by Pulse Oximetry 98 - Physical Exam Oriented: Normal Eyes: Normal Ear: Normal Nose: Normal Throat: Normal Respiratory: Diminished (MILD TO BILATERAL LUNG BASES), Wheezes Cardiovascular: Tachycardia. negative: S3, S4, Murmur : Normal Auscultation: Bowel Sounds: Normal Palpation: Normal Tenderness: Normal Skin: Normal Musculoskeletal: Normal Psychiatric: Normal Mood Description: Calm Affect: Normal Speech Pattern: Clear, Appropriate - Laboratory and Diagnostics Result Diagrams: 07/16/18 04:24 07/16/18 04:24 Labs: 07/11/18 11:08 Blood Blood Culture - Final 07/11/18 11:13 Blood Blood Culture - Final Laboratory WBC 4.9 X10^3/uL (3.6-10.0) 07/16/18 04:24 RBC 3.55 X10^6/uL (3.5-5.4) 07/16/18 04:24 Hgb 10.6 g/dL (12.0-16.0) L 07/16/18 04:24 Hct 29.8 % (36.0-47.0) L 07/16/18 04:24 MCV 83.9 fL (80.0-100.0) 07/16/18 04:24 MCH 29.7 pg (27.0-34.0) 07/16/18 04:24 MCHC 35.5 g/dL (33.0-35.0) H 07/16/18 04:24 RDW 17.4 % (11.6-16.5) H 07/16/18 04:24 Plt Count 52 X10^3/uL (150.0-450.0) L 07/16/18 04:24 Plt Count Comment Decreased (ADEQUATE) A 07/16/18 04:24 MPV 11.2 fL (7.4-11.0) H 07/16/18 04:24 Neut % (Auto) 78.8 % (42.0-75.0) H 07/16/18 04:24 Lymph % (Auto) 11.6 % (21.0-51.0) L 07/16/18 04:24 [place] % (Auto) 7.7 % (0.0-13.0) 07/16/18 04:24 Eos % (Auto) 1.5 % (0.9-2.9) 07/16/18 04:24 Baso % (Auto) 0.4 % (0.2-1.0) 07/16/18 04:24 Neut # (Auto) 3.5 x10^3/uL (2.2-4.8) 07/16/18 04:24 Lymph # (Auto) 0.5 X10^3/uL (1.3-2.9) L 07/16/18 04:24 [place] # (Auto) 0.3 x10^3/uL (0.3-0.8) 07/16/18 04:24 Eos # (Auto) 0.1 x10^3/uL (0.0-0.2) 07/16/18 04:24 Baso # (Auto) 0.0 X10^3/uL (0.0-0.1) 07/16/18 04:24 Absolute Nucleated RBC 0.0 /100WBC 07/16/18 04:24 Plt Morphology Comment Normal (NORMAL) 07/16/18 04:24 RBC Morphology Abnormal (NORMAL) A 07/16/18 04:24 Hypochromasia Slight A 07/16/18 04:24 Anisocytosis Slight A 07/16/18 04:24 Sodium 141 mmol/L (136-145) 07/16/18 04:24 Corrected Sodium TNP 07/16/18 04:24 Potassium 3.9 mmol/L (3.5-5.1) 07/16/18 04:24 Chloride 107 mmol/L (98-107) 07/16/18 04:24 Carbon Dioxide 27.2 mmol/L (21-32) 07/16/18 04:24 BUN 3 mg/dL (7-18) L 07/16/18 04:24 Creatinine 0.72 mg/dL (0.55-1.02) 07/16/18 04:24 Est GFR (MDRD) Af Amer > 60 (>60) 07/16/18 04:24 Est GFR (MDRD) Non-Af > 60 (>60) 07/16/18 04:24 Glucose 78 mg/dL (65-99) 07/16/18 04:24 Calcium 7.9 mg/dL (8.5-10.1) L 07/16/18 04:24 Corrected Calcium 9.6 mg/dL (8.5-10.1) 07/16/18 04:24 Total Bilirubin 5.40 mg/dL (0.2-1.0) H 07/16/18 04:24 AST 61 Units/L (15-37) H 07/16/18 04:24 ALT 37 Units/L (12-78) 07/16/18 04:24 Alkaline Phosphatase 341 Units/L (46-116) H 07/16/18 04:24 C-Reactive Protein 27.20 mg/L (0-3.0) H 07/11/18 11:08 Total Protein 4.9 g/dL (6.4-8.2) L 07/16/18 04:24 Albumin 1.9 g/dL (3.4-5.0) L 07/16/18 04:24 Globulin 3.0 g/dL (2.5-4.5) 07/16/18 04:24 Albumin/Globulin Ratio 0.6 Ratio (1.1-2.1) L 07/16/18 04:24 Specimen Type Clean catch urine 07/11/18 12:31 Urine Color [place] (YELLOW) 07/11/18 12:31 Urine Appearance Hazy (CLEAR) 07/11/18 12:31 Urine pH 6.0 (5.0 - 8.0) 07/11/18 12:31 Ur Specific [place] 1.025 (1.000-1.030) 07/11/18 12:31 Urine Protein 2+ (NEGATIVE) 07/11/18 12:31 Urine Glucose (UA) Negative (NEGATIVE) 07/11/18 12: Urine Ketones Negative (NEGATIVE) 07/11/18 12:31 Urine Occult Blood Negative (NEGATIVE) 07/11/18 12:31 Urine Nitrite Positive (NEGATIVE) 07/11/18 12:31 Urine Bilirubin 3+ (NEGATIVE) 07/11/18 12:31 Urine Urobilinogen 4+ (NORMAL) 07/11/18 12:31 Ur Leukocyte Esterase 1+ (NEGATIVE) 07/11/18 12:31 Urine RBC 3-5 /HPF (NONE SEEN) 07/11/18 12:31 Urine WBC 3-5 /HPF (NONE SEEN) 07/11/18 12:31 Ur Squamous Epith Cells Few /HPF (NEGATIVE) 07/11/18 12:31 Calcium Oxalate Crystal Rare /HPF (NEGATIVE) 07/11/18 12:31 Amorphous Sediment 4+ /HPF (NEGATIVE) 07/11/18 12:31 Urine Bacteria Trace /HPF (NEGATIVE) 07/11/18 12:31 Ur Culture Indicated? No/not indicated 07/11/18 12:31 - Plan (1) Bandemia Status: Acute Plan: FORTAZ AND LEVAQUIN IV, CONTINUE TO MONITOR (2) Fever Status: Acute Qualifiers: Fever type: due to other condition Qualified Code(s): R50.81 - Fever presenting with conditions classified elsewhere Plan: TYLENOL PRN, CONTINUE TO MONITOR
--- NOTE | 2018-10-05 20:39 | PCM.PROG ---
Progress Note - Progress Note for Day of Date of Exam: 07/13/18 - Subjective Subjective: WAS ADMITTED FOR PNEUMONIA, FAILED OUTPATIENT TREATMENT. TODAY, SHE IS ALERT AND ORIENTED, LYING IN BED ON MORNING ROUNDS. SHE CONTINUES WITH COMPLAINTS OF SHORTNESS OF BREATH AND A NON-PRODUCTIVE COUGH. ON EXAMINATION, HEART IS REGULAR IN RATE AND RHYTHM. BILATERAL LUNGS ARE NOTED WITH SCATTERED WHEEZING. ABDOMEN IS FLAT, SOFT, AND NON-TENDER WITH NORMAL BOWEL SOUNDS NOTED IN ALL QUADRANTS. HER VITALS THIS MORNING ARE 100.5-97-18-97%-109/53. LABS WERE OBTAINED. ABNORMAL LAB VALUES INCLUDE THE FOLLOWING: HGB 10.4, HCT 29.6, PLT COUNT 46, BUN 3, CALCIUM 8.0, TOTAL BILI 6.20, AST 41, ALK PHOS 286, TOTAL PROTEIN 5.2, ALBUMIN 2.0. BLOOD CULTURES ARE PENDING. TODAY, WE WILL CONTINUE WITH CURRENT PLAN OF CARE. OTHERWISE, WE WILL FOLLOW UP WITH AM LABS AND CONTINUE TO MONITOR. - Past Medical Family Social History Past Med/Fam/Surg Hx: No changes since H&P Allergies: Allergies iodine Allergy (Verified 07/11/18 10:31) - Review of Systems ROS: No change since H&P - Vital Signs and I&O's Vital Signs: Temperature 98.6 F Pulse Rate [Left Brachial] 86 Pulse Rate [Right Brachial] 97 Pulse Rate 103 Respiratory Rate 18 Blood Pressure [Left Arm] 105/57 Blood Pressure 104/58 O2 Sat by Pulse Oximetry 98 - Physical Exam Oriented: Normal Eyes: Normal Ear: Normal Nose: Normal Throat: Normal Respiratory: Diminished (MILD TO BILATERAL LUNG BASES), Wheezes Cardiovascular: Tachycardia. negative: S3, S4, Murmur : Normal Auscultation: Bowel Sounds: Normal Tenderness: Normal Skin: Normal Musculoskeletal: Normal Psychiatric: Normal Mood Description: Calm Affect: Normal Speech Pattern: Clear, Appropriate - Laboratory and Diagnostics Result Diagrams: 07/16/18 04:24 07/16/18 04:24 Labs: 07/11/18 11:08 Blood Blood Culture - Final 07/11/18 11:13 Blood Blood Culture - Final Laboratory WBC 4.9 X10^3/uL (3.6-10.0) 07/16/18 04:24 RBC 3.55 X10^6/uL (3.5-5.4) 07/16/18 04:24 Hgb 10.6 g/dL (12.0-16.0) L 07/16/18 04:24 Hct 29.8 % (36.0-47.0) L 07/16/18 04:24 MCV 83.9 fL (80.0-100.0) 07/16/18 04:24 MCH 29.7 pg (27.0-34.0) 07/16/18 04:24 MCHC 35.5 g/dL (33.0-35.0) H 07/16/18 04:24 RDW 17.4 % (11.6-16.5) H 07/16/18 04:24 Plt Count 52 X10^3/uL (150.0-450.0) L 07/16/18 04:24 Plt Count Comment Decreased (ADEQUATE) A 07/16/18 04:24 MPV 11.2 fL (7.4-11.0) H 07/16/18 04:24 Neut % (Auto) 78.8 % (42.0-75.0) H 07/16/18 04:24 Lymph % (Auto) 11.6 % (21.0-51.0) L 07/16/18 04:24 [place] % (Auto) 7.7 % (0.0-13.0) 07/16/18 04:24 Eos % (Auto) 1.5 % (0.9-2.9) 07/16/18 04:24 Baso % (Auto) 0.4 % (0.2-1.0) 07/16/18 04:24 Neut # (Auto) 3.5 x10^3/uL (2.2-4.8) 07/16/18 04:24 Lymph # (Auto) 0.5 X10^3/uL (1.3-2.9) L 07/16/18 04:24 [place] # (Auto) 0.3 x10^3/uL (0.3-0.8) 07/16/18 04:24 Eos # (Auto) 0.1 x10^3/uL (0.0-0.2) 07/16/18 04:24 Baso # (Auto) 0.0 X10^3/uL (0.0-0.1) 07/16/18 04:24 Absolute Nucleated RBC 0.0 /100WBC 07/16/18 04:24 Plt Morphology Comment Normal (NORMAL) 07/16/18 04:24 RBC Morphology Abnormal (NORMAL) A 07/16/18 04:24 Hypochromasia Slight A 07/16/18 04:24 Anisocytosis Slight A 07/16/18 04:24 Sodium 141 mmol/L (136-145) 07/16/18 04:24 Corrected Sodium TNP 07/16/18 04:24 Potassium 3.9 mmol/L (3.5-5.1) 07/16/18 04:24 Chloride 107 mmol/L (98-107) 07/16/18 04:24 Carbon Dioxide 27.2 mmol/L (21-32) 07/16/18 04:24 BUN 3 mg/dL (7-18) L 07/16/18 04:24 Creatinine 0.72 mg/dL (0.55-1.02) 07/16/18 04:24 Est GFR (MDRD) Af Amer > 60 (>60) 07/16/18 04:24 Est GFR (MDRD) Non-Af > 60 (>60) 07/16/18 04:24 Glucose 78 mg/dL (65-99) 07/16/18 04:24 Calcium 7.9 mg/dL (8.5-10.1) L 07/16/18 04:24 Corrected Calcium 9.6 mg/dL (8.5-10.1) 07/16/18 04:24 Total Bilirubin 5.40 mg/dL (0.2-1.0) H 07/16/18 04:24 AST 61 Units/L (15-37) H 07/16/18 04:24 ALT 37 Units/L (12-78) 07/16/18 04:24 Alkaline Phosphatase 341 Units/L (46-116) H 07/16/18 04:24 C-Reactive Protein 27.20 mg/L (0-3.0) H 07/11/18 11:08 Total Protein 4.9 g/dL (6.4-8.2) L 07/16/18 04:24 Albumin 1.9 g/dL (3.4-5.0) L 07/16/18 04:24 Globulin 3.0 g/dL (2.5-4.5) 07/16/18 04:24 Albumin/Globulin Ratio 0.6 Ratio (1.1-2.1) L 07/16/18 04:24 Specimen Type Clean catch urine 07/11/18 12:31 Urine Color [place] (YELLOW) 07/11/18 12:31 Urine Appearance Hazy (CLEAR) 07/11/18 12:31 Urine pH 6.0 (5.0 - 8.0) 07/11/18 12:31 Ur Specific [place] 1.025 (1.000-1.030) 07/11/18 12:31 Urine Protein 2+ (NEGATIVE) 07/11/18 12:31 Urine Glucose (UA) Negative (NEGATIVE) 07/11/18 12: Urine Ketones Negative (NEGATIVE) 07/11/18 12: Urine Occult Blood Negative (NEGATIVE) 07/11/18 12:31 Urine Nitrite Positive (NEGATIVE) 07/11/18 12:31 Urine Bilirubin 3+ (NEGATIVE) 07/11/18 12:31 Urine Urobilinogen 4+ (NORMAL) 07/11/18 12:31 Ur Leukocyte Esterase 1+ (NEGATIVE) 07/11/18 12:31 Urine RBC 3-5 /HPF (NONE SEEN) 07/11/18 12:31 Urine WBC 3-5 /HPF (NONE SEEN) 07/11/18 12:31 Ur Squamous Epith Cells Few /HPF (NEGATIVE) 07/11/18 12:31 Calcium Oxalate Crystal Rare /HPF (NEGATIVE) 07/11/18 12:31 Amorphous Sediment 4+ /HPF (NEGATIVE) 07/11/18 12:31 Urine Bacteria Trace /HPF (NEGATIVE) 07/11/18 12:31 Ur Culture Indicated? No/not indicated 07/11/18 12:31 - Plan (1) Bandemia Status: Acute Plan: FORTAZ AND LEVAQUIN IV, CONTINUE TO MONITOR (2) Fever Status: Acute Qualifiers: Fever type: due to other condition Qualified Code(s): R50.81 - Fever presenting with conditions classified elsewhere Plan: TYLENOL PRN, CONTINUE TO MONITOR
== END 2018-07-16 16:30 | disposition home or self-care (01) | DRG 872 ==
LOC: ER 10:30 → MED/SURG 10:30 → OBSVTOIN 14:45 → MED/SURG 15:23
PROVIDERS: ADMIT Internal Medicine; ATTEND Internal Medicine
DX: R78.81 Bacteremia; R79.82 Elevated C-reactive protein (CRP); D69.6 Thrombocytopenia, unspecified; R06.02 Shortness of breath; I85.00 Esophageal varices without bleeding; Z96.89 Presence of other specified functional implants; D72.825 Bandemia; R50.81 Fever presenting with conditions classified elsewhere; K76.89 Other specified diseases of liver
CPT/HCPCS: 36415; 71020; 71046; 80053; 81001; 85025; 86140; 87040; 96365; 96367; 96374; 99231; 99282; 99283; 99284; A4222; J0713; J0744; J1956; J2543; J3490; J7030; J7040; J7050; J8499